=== PATIENT | female | born 1945 | race Caucasian/White ===

== ENCOUNTER 2021-01-03 11:45 | Outpatient (CLI) | payer MEDICARE ==
[2021-01-03] MEDS ORDERED: HYDR-826 PO (13:08)
[2021-01-03] MEDS ORDERED: ESOM40CA PO (13:08)
[2021-01-03] MEDS ORDERED: CLOB15CR TP (13:08)
[2021-01-03] MEDS ORDERED: CETI10CA PO (13:08)
[2021-01-03] MEDS ORDERED: CHOL4PAC2 PO (13:08)
[2021-01-03 13:16] LABS: ALANINE AMINOTRANSFERASE 19 U/L (12-78); ALBUMIN 3.7 g/dL (3.4-5.0); ANION GAP 8 mmol/L (5-15); CALCIUM 9.6 mg/dL (8.5-10.1); CHLORIDE 104 mmol/L (98-107); CREATININE 0.93 mg/dL (0.55-1.02); INTERNATIONAL NORMALIZED RATIO 0.99 (0.93-1.1); PROTHROMBIN TIME 10.6 Seconds (9.6-11.5)
[2021-01-03 13:19] LABS: ALKALINE PHOSPHATASE 107 U/L (45-117); BILIRUBIN,TOTAL 0.5 mg/dL (0.2-1.0)
[2021-01-03 13:21] LABS: BASOPHILS % (AUTO) 1 % (0-1); EOSINOPHILS % (AUTO) 2 % (1-7); LYMPHOCYTES % (AUTO) 20 % (22-44); MEAN CORPUSCULAR HEMOGLOBIN 27.6 pg (27.0-34.8); MEAN CORPUSCULAR HGB CONC 33.2 g/dL (32.4-35.8); MEAN PLATELET VOLUME 8.4 fL (7.4-10.4); MONOCYTES % (AUTO) 5 % (2-9); NEUTROPHILS % (AUTO) 72 % (42-75); PLATELET COUNT 326 x10^3/uL (130-400); RED BLOOD COUNT 5.08 x10^6/uL (3.82-5.3); RED CELL DISTRIBUTION WIDTH 14.8 % (9.6-15.2)
[2021-01-03] MEDS ORDERED: MELA5TAB14 PO (13:59)
[2021-01-03] MEDS ORDERED: CHOL10003 PO (13:59)
[2021-01-03] MEDS ORDERED: MULT-672 PO (13:59)
[2021-01-03] MEDS ORDERED: IBUP-1223 PO (13:59)
[2021-01-03] MEDS ORDERED: CALC500T93 PO (13:59)
[2021-01-03] MEDS ORDERED: GLUC1TAB27 PO (13:59)
[2021-01-03] MEDS ORDERED: MULT-449 PO (13:59)
== END 2021-01-03 23:59 | disposition home or self-care (01) ==
LOC: STAR 11:45
PROVIDERS: ATTEND Obstetrics & Gynecology
DX: Z01.818 Encounter for other preprocedural examination (principal); R00.1 Bradycardia, unspecified
CPT/HCPCS: 36415; 71046; 80053; 85025; 85610; 85730; 93005

== ENCOUNTER 2021-01-09 06:26 | Day surgery (SDC) | payer MEDICARE, BC ==
[~2021-01-09] VITALS: Ht 162.6 cm; Wt 96.1 kg
[~2021-01-09 06:26] MED LIST: CALC500T93 PO; CETI10CA PO; CHOL10003 PO; CHOL4PAC2 PO; CLOB15CR TP; ESOM40CA PO; GLUC1TAB27 PO; HYDR-826 PO; IBUP-1223 PO; MELA5TAB14 PO; MULT-449 PO; MULT-672 PO
[2021-01-09] MEDS ORDERED: SILVER SULF. CRM 1% , 25GM ONE (07:09)
[2021-01-09] MEDS ORDERED: BUPIVACAINE/PF-EPI 0.25% 1:200K ONE (07:09)
[2021-01-09] MEDS ORDERED: CHLORHEXIDINE 15 ML UDC PO ONE (07:30)
[2021-01-09] MEDS ORDERED: LACTATED RINGERS 1,000 ML IV SCH (07:30)
[2021-01-09 07:42] VITALS: BP 131/82
[2021-01-09] MEDS ORDERED: CEFAZOLIN PMX 2GM/50ML 50 ML IVPB ONE (08:00)
[2021-01-09] MEDS ORDERED: ONDANSETRON 2MG/ML, 2ML IVPush PRN (09:00)
[2021-01-09] MEDS ORDERED: LABETALOL 5MG/ML, 20ML IV PRN (09:00)
[2021-01-09] MEDS ORDERED: PROMETHAZINE 25 MG SUPP PR PRN (09:00)
[2021-01-09] MEDS ORDERED: PROMETHAZINE 12.5 MG SUPP PR PRN (09:00)
[2021-01-09] MEDS ORDERED: METHOCARBAMOL 1,000 MG in DEXTROSE 5% 100 ML IV PRN (09:00)
[2021-01-09] MEDS ORDERED: LORazepam 2 MG/ML, 1ML IVPush PRN (09:00)
[2021-01-09] MEDS ORDERED: HYDROmorphone 1 MG/ML, 1ML INJ IVPush PRN (09:00)
[2021-01-09] MEDS ORDERED: OXYcodone 5 MG/5 ML ORAL.SOL UDC PO PRN (09:00)
[2021-01-09] MEDS ORDERED: hydrALAzine 20 MG/ML, 1ML IV PRN (09:00)
[2021-01-09] MEDS ORDERED: ACETAMINOPHEN 325 MG TABLET PO PRN (09:00)
[2021-01-09] MEDS ORDERED: PROPOFOL 10 MG/ML, 20ML ONE (09:11)
[2021-01-09] MEDS ORDERED: DEXAMETHASONE 4 MG/ML, 1ML ONE (09:11)
[2021-01-09] MEDS ORDERED: FENTANYL PF 100 MCG/2ML ONE ×2 (09:11→09:40)
[2021-01-09] MEDS ORDERED: CEFAZOLIN 1,000 MG ONE (09:11)
[2021-01-09] MEDS ORDERED: ONDANSETRON 2MG/ML, 2ML ONE (09:11)
[2021-01-09] MEDS ORDERED: OXYcodone 5 MG/5 ML ORAL.SOL UDC ONE (09:40)
[2021-01-09] MEDS: FENTANYL PF 100 MCG/2ML IV PRN ×2 (09:45→09:51)
== END 2021-01-09 13:10 | disposition home or self-care (01) ==
LOC: OUT 06:26
PROVIDERS: ATTEND Obstetrics & Gynecology
DX: N90.1 Moderate vulvar dysplasia (principal); C51.0 Malignant neoplasm of labium majus; K21.9 Gastro-esophageal reflux disease without esophagitis; E78.5 Hyperlipidemia, unspecified; Z79.1 Long term (current) use of non-steroidal anti-inflammatories (NSAID); Z79.899 Other long term (current) drug therapy; Z87.891 Personal history of nicotine dependence; Z88.2 Allergy status to sulfonamides; Z88.8 Allergy status to other drugs, medicaments and biological substances
CPT/HCPCS: 11424; 12041; 36415; 86850; 86900; 88309; J0690; J1100; J2405; J2704; J3010; J7120